=== PATIENT | male | born 1930 | race Caucasian/White ===

== ENCOUNTER 2021-04-14 20:28 | Inpatient (IN) | payer MEDICARE ==
[~2021-04-14] VITALS: Ht 172.7 cm; Wt 81.6 kg
[2021-04-14] MEDS ORDERED: DEXAMETHASONE SOD PHOSPHATE 4 MG INJ IV ONE (20:45)
[2021-04-14] MEDS ORDERED: ALBUTEROL SULFATE 8 GM HFA.AER.AD IH PRN ×2 (20:45→23:00)
[2021-04-14] MEDS ORDERED: AZITHROMYCIN IV 500 MG in IV DEXTROSE 5% 250 ML IV ONE (20:45)
[2021-04-14] MEDS ORDERED: CEFTRIAXONE 1 G in IV DEXTROSE 5% 50 ML IV ONE (20:45)
[2021-04-14 21:11] LABS: HEMATOCRIT 36.9 % (36.7-47.1); MEAN CORPUSCULAR VOLUME 96.4 fL (73.0-96.2); PLATELET COUNT (AUTO) 246 K/uL (152-348)
[2021-04-14 21:18] LABS: CARBON DIOXIDE 27 mmol/L (21-32); CHLORIDE 96 mmol/L (98-107); CREATININE 1.5 mg/dL (0.6-1.3); GLUCOSE 158 mg/dL (74-106); POTASSIUM 3.3 mmol/L (3.5-5.1); UREA NITROGEN, BLOOD 21 mg/dL (7-18)
[2021-04-14] MEDS ORDERED: AZITHROMYCIN 500MG/ D5W 250ML IVPB **ER PYXIS ONLY IV ONE (21:25)
[2021-04-14] MEDS ORDERED: DEXAMETHASONE SOD PHOSPHATE 10 MG INJ ONE (21:25)
[2021-04-14] MEDS ORDERED: CEFTRIAXONE /D5W 50ML IVPB **ER PYXIS IV ONE (21:25)
[2021-04-14 21:30] LABS: ALANINE AMINOTRANSFERASE 18 U/L (16-63); ALKALINE PHOSPHATASE 56 U/L (50-136); ASPARTATE AMINOTRANSFERASE 20 U/L (15-37); BILIRUBIN,DIRECT 0.2 mg/dL (0.0-0.2); BILIRUBIN,TOTAL 0.4 mg/dL (0.2-1.0); TOTAL PROTEIN, SERUM 6.9 g/dL (6.4-8.2)
[2021-04-14] MEDS ORDERED: IV NORMAL SALINE 500 ML BAG IV ONE (21:45)
[2021-04-14] MEDS ORDERED: RIVA15TA PO (22:31)
[2021-04-14] MEDS ORDERED: CLOP75TA15 PO (22:31)
[2021-04-14] MEDS ORDERED: ALLO100T PO (22:31)
[2021-04-14] MEDS ORDERED: AMLO10TA59 PO (22:31)
[2021-04-14] MEDS ORDERED: ATOR40TA PO (22:31)
[2021-04-14] MEDS ORDERED: TAMS-3 PO ×2 (22:31→23:09)
[2021-04-14] MEDS ORDERED: Z GUARD REMEDY PASTE 57 GM TUBE TOP PRN (23:00)
[2021-04-14] MEDS ORDERED: MAGNESIUM HYDROXIDE 30 ML LIQUID UDC PO PRN (23:00)
[2021-04-14] MEDS ORDERED: ONDANSETRON 4 MG/2 ML VIAL IV PRN (23:00)
[2021-04-14] MEDS ORDERED: ACETAMINOPHEN 325 MG TABLET PO PRN (23:00)
[2021-04-14] MEDS ORDERED: LOSA1TAB36 PO (23:09)
[2021-04-14] MEDS ORDERED: AMLO-212 PO (23:09)
[2021-04-14] MEDS ORDERED: GABA300C PO (23:09)
[2021-04-14] MEDS ORDERED: MODA200T44 PO (23:09)
[2021-04-14] MEDS ORDERED: CLOM50TA18 PO (23:09)
[2021-04-14] MEDS ORDERED: TRAM50TA2 PO (23:09)
[2021-04-14] MEDS ORDERED: ALLO300T2 PO (23:09)
[2021-04-14] MEDS ORDERED: ESCI10TA PO (23:09)
[2021-04-14] MEDS ORDERED: ATOR20TA PO (23:09)
[2021-04-14] MEDS ORDERED: RIVA10TA PO (23:09)
[2021-04-14] MEDS ORDERED: TRAMADOL HCL 50 MG TABLET PO PRN (23:15)
[2021-04-14] MEDS ORDERED: Medication Not On Formulary EA (Losartan/Hydrochlorothiazide (Losartan-Hctz 50-12.5 Mg T PO SCH (23:15)
[2021-04-15 01:15] LABS: ABG BASE EXCESS -2.2 mmol/L; ABG HCO3 21.7 mmol/L; ABG PCO2 34.3 mmHg (35.0-45.0); ABG PH 7.419 (7.350-7.450); ABG PO2 68.9 mmHg (75.0-100.0); ABG SITE RIGHT RADIAL; ABG TOTAL HEMOGLOBIN 12.5 G/dL (13.5-18.0); COHb 0.6 % (0.5-1.5); MetHb 0.3 % (0.0-1.5); O2Hb 92.2 % (94.0-97.0); VENT MODE Nasal Cannula
[2021-04-15] MEDS ORDERED: POTASSIUM CHLORIDE 20 MEQ TAB.PRT.SR PO ONE (03:15)
[2021-04-15] MEDS ORDERED: POTASSIUM CHLORIDE 20 MEQ TAB.PRT.SR ONE (03:15)
[2021-04-15 04:00] VITALS: BP 167/89
[2021-04-15] MEDS: PANTOPRAZOLE SODIUM 40 MG TABLET.DR PO SCH (06:37)
[2021-04-15 07:04] LABS: HEMATOCRIT 32.9 % (36.7-47.1); MEAN CORPUSCULAR HEMOGLOBIN 32.7 uug (23.8-33.4); MEAN CORPUSCULAR VOLUME 96.2 fL (73.0-96.2); PLATELET COUNT (AUTO) 228 K/uL (152-348)
[2021-04-15 07:45] LABS: CREATININE 1.3 mg/dL (0.6-1.3); POTASSIUM 3.6 mmol/L (3.5-5.1)
[2021-04-15] MEDS ORDERED: TAMSULOSIN HCL 0.4 MG CAP.SR.24H PO SCH (09:00)
[2021-04-15] MEDS: HEPARIN SODIUM,PORCINE 5,000 UNITS/ML VIAL SQ SCH ×2 (10:04→21:31)
[2021-04-15] MEDS: AMLODIPINE 5 MG TABLET PO SCH (10:12)
[2021-04-15] MEDS: HYDROCHLOROTHIAZIDE 12.5 MG CAPSULE PO SCH (10:12)
[2021-04-15] MEDS: LOSARTAN POTASSIUM 50 MG TABLET PO SCH (10:13)
[2021-04-15] MEDS: ATORVASTATIN 20 MG TABLET PO SCH (10:13)
[2021-04-15] MEDS: ALLOPURINOL 300 MG TABLET PO SCH (10:14)
[2021-04-15] MEDS: GABAPENTIN 300 MG CAPSULE PO SCH ×3 (10:14→17:08)
[2021-04-15] MEDS: TRAMADOL HCL 50 MG TABLET PO SCH ×2 (10:14→17:09)
[2021-04-15] MEDS: IV NS 1000 ML 1,000 ML IV PRN ×2 (10:15→21:29)
[2021-04-15 12:00] VITALS: BP 109/57
[2021-04-15 16:00] VITALS: BP 120/55
[2021-04-15 20:00] VITALS: BP 103/58
[2021-04-15] MEDS ORDERED: REMDESIVIR (CHARGED) 200 MG in IV NORMAL SALINE 210 ML IV ONE (21:00)
[2021-04-15] MEDS: GUAIFENESIN/DEXTROMETHORPHAN 5 ML UDC PO PRN (21:28)
[2021-04-15] MEDS: DEXAMETHASONE SOD PHOSPHATE 4 MG INJ IV SCH (21:28)
[2021-04-15] MEDS: ESCITALOPRAM OXALATE 10 MG TABLET PO SCH (21:30)
[2021-04-15 21:33] LABS: *BILIRUBIN,URIN NEGATIVE (NEGATIVE); *CLARITY,URINE CLEAR (CLEAR); *COLOR,URINE YELLOW (YELLOW); *KETONES,URINE NEGATIVE (NEGATIVE); *UROBILINOGEN,URINE 0.2 E.U./dl (NORMAL); LEUKOCYTE ESTERASE ,URINE NEGATIVE (NEGATIVE); NITRITE, URINE NEGATIVE (NEGATIVE); PH,URINE 5.5 (5.0-8.0); UGLUCOSE NEGATIVE (NEGATIVE)
[2021-04-15 21:39] LABS: *BLOOD, URINE TRACE (NEGATIVE)
[2021-04-15 21:49] LABS: BACTERIA,URINE NONE SEEN /HPF (NONE SEEN); MUCUS,URINE FEW /LPF (0-FEW); RBC,URINE NONE SEEN /HPF (0-3); WBC,URINE 0-3 /HPF (0-3)
[2021-04-15 21:50] LABS: SQUAMOUS EPITHELIAL CELL,UR NONE SEEN /HPF (NONE SEEN)
[2021-04-16] VITALS: BP 110/72
[2021-04-16] MEDS: GUAIFENESIN/DEXTROMETHORPHAN 5 ML UDC PO PRN (02:43)
[2021-04-16 04:00] VITALS: BP 145/80
[2021-04-16] MEDS: PANTOPRAZOLE SODIUM 40 MG TABLET.DR PO SCH (06:06)
[2021-04-16 07:38] LABS: HEMATOCRIT 33.6 % (36.7-47.1); MEAN CORPUSCULAR HEMOGLOBIN 32.5 uug (23.8-33.4); MEAN CORPUSCULAR VOLUME 97.1 fL (73.0-96.2); PLATELET COUNT (AUTO) 206 K/uL (152-348)
[2021-04-16 08:18] LABS: CREATININE 1.1 mg/dL (0.6-1.3); POTASSIUM 3.8 mmol/L (3.5-5.1)
[2021-04-16] MEDS: LOSARTAN POTASSIUM 50 MG TABLET PO SCH (09:19)
[2021-04-16] MEDS: ATORVASTATIN 20 MG TABLET PO SCH (09:19)
[2021-04-16] MEDS: ALLOPURINOL 300 MG TABLET PO SCH (09:19)
[2021-04-16] MEDS: HYDROCHLOROTHIAZIDE 12.5 MG CAPSULE PO SCH (09:20)
[2021-04-16] MEDS: TRAMADOL HCL 50 MG TABLET PO SCH ×2 (09:20→16:44)
[2021-04-16] MEDS: GABAPENTIN 300 MG CAPSULE PO SCH ×3 (09:20→16:44)
[2021-04-16] MEDS: AMLODIPINE 5 MG TABLET PO SCH (09:20)
[2021-04-16] MEDS: HEPARIN SODIUM,PORCINE 5,000 UNITS/ML VIAL SQ SCH ×2 (09:22→20:26)
[2021-04-16 09:37] LABS: BILIRUBIN,DIRECT 0.1 mg/dL (0.0-0.2); BILIRUBIN,TOTAL 0.2 mg/dL (0.2-1.0); TOTAL PROTEIN, SERUM 5.8 g/dL (6.4-8.2)
[2021-04-16 12:00] VITALS: BP 138/71
[2021-04-16] MEDS: IV NS 1000 ML 1,000 ML IV PRN (14:42)
[2021-04-16 16:00] VITALS: BP 133/69
[2021-04-16 20:00] VITALS: BP 90/66
[2021-04-16] MEDS: ESCITALOPRAM OXALATE 10 MG TABLET PO SCH (20:24)
[2021-04-16] MEDS: TAMSULOSIN HCL 0.4 MG CAP.SR.24H PO SCH (20:25)
[2021-04-16] MEDS: DEXAMETHASONE SOD PHOSPHATE 4 MG INJ IV SCH (20:26)
[2021-04-16] MEDS: REMDESIVIR (CHARGED) 100 MG in IV NORMAL SALINE 100 ML IV SCH (20:57)
[2021-04-17 00:20] VITALS: BP 139/79
[2021-04-17 04:00] VITALS: BP 146/77
[2021-04-17] MEDS: IV NS 1000 ML 1,000 ML IV PRN ×2 (05:04→17:42)
[2021-04-17] MEDS: PANTOPRAZOLE SODIUM 40 MG TABLET.DR PO SCH (06:08)
[2021-04-17 06:31] LABS: HEMATOCRIT 35.2 % (36.7-47.1); MEAN CORPUSCULAR HEMOGLOBIN 32.1 uug (23.8-33.4); MEAN CORPUSCULAR VOLUME 97.2 fL (73.0-96.2); PLATELET COUNT (AUTO) 232 K/uL (152-348)
[2021-04-17 07:07] LABS: BILIRUBIN,DIRECT 0.1 mg/dL (0.0-0.2); BILIRUBIN,TOTAL 0.1 mg/dL (0.2-1.0); POTASSIUM 3.6 mmol/L (3.5-5.1); TOTAL PROTEIN, SERUM 5.9 g/dL (6.4-8.2)
[2021-04-17] MEDS: HEPARIN SODIUM,PORCINE 5,000 UNITS/ML VIAL SQ SCH ×2 (09:25→20:26)
[2021-04-17] MEDS: LOSARTAN POTASSIUM 50 MG TABLET PO SCH (09:26)
[2021-04-17] MEDS: HYDROCHLOROTHIAZIDE 12.5 MG CAPSULE PO SCH (09:26)
[2021-04-17] MEDS: ALLOPURINOL 300 MG TABLET PO SCH (09:26)
[2021-04-17] MEDS: AMLODIPINE 5 MG TABLET PO SCH (09:27)
[2021-04-17] MEDS: GABAPENTIN 300 MG CAPSULE PO SCH ×3 (09:27→16:54)
[2021-04-17] MEDS: ATORVASTATIN 20 MG TABLET PO SCH (09:27)
[2021-04-17] MEDS: TRAMADOL HCL 50 MG TABLET PO SCH ×2 (09:27→16:54)
[2021-04-17 20:00] VITALS: BP 121/60
[2021-04-17] MEDS: REMDESIVIR (CHARGED) 100 MG in IV NORMAL SALINE 100 ML IV SCH (20:17)
[2021-04-17] MEDS: ESCITALOPRAM OXALATE 10 MG TABLET PO SCH (20:26)
[2021-04-17] MEDS: DEXAMETHASONE SOD PHOSPHATE 4 MG INJ IV SCH (20:26)
[2021-04-17] MEDS: TAMSULOSIN HCL 0.4 MG CAP.SR.24H PO SCH (20:26)
[2021-04-17 22:00] VITALS: BP 132/64
[2021-04-18] VITALS: BP 154/81
[2021-04-18 04:34] VITALS: BP 156/78
[2021-04-18] MEDS: IV NS 1000 ML 1,000 ML IV PRN ×2 (06:13→22:22)
[2021-04-18] MEDS: PANTOPRAZOLE SODIUM 40 MG TABLET.DR PO SCH (06:13)
[2021-04-18 08:13] LABS: HEMATOCRIT 36.6 % (36.7-47.1); MEAN CORPUSCULAR HEMOGLOBIN 32.1 uug (23.8-33.4); MEAN CORPUSCULAR VOLUME 97.6 fL (73.0-96.2); PLATELET COUNT (AUTO) 280 K/uL (152-348)
[2021-04-18 08:31] LABS: BILIRUBIN,DIRECT 0.1 mg/dL (0.0-0.2); BILIRUBIN,TOTAL 0.2 mg/dL (0.2-1.0); CREATININE 1.2 mg/dL (0.6-1.3); POTASSIUM 4.2 mmol/L (3.5-5.1); TOTAL PROTEIN, SERUM 5.9 g/dL (6.4-8.2)
[2021-04-18] MEDS: ALLOPURINOL 300 MG TABLET PO SCH (08:40)
[2021-04-18] MEDS: GABAPENTIN 300 MG CAPSULE PO SCH ×3 (08:40→17:47)
[2021-04-18] MEDS: ATORVASTATIN 20 MG TABLET PO SCH (08:41)
[2021-04-18] MEDS: AMLODIPINE 5 MG TABLET PO SCH (08:45)
[2021-04-18] MEDS: HYDROCHLOROTHIAZIDE 12.5 MG CAPSULE PO SCH (08:45)
[2021-04-18] MEDS: LOSARTAN POTASSIUM 50 MG TABLET PO SCH (08:45)
[2021-04-18] MEDS: TRAMADOL HCL 50 MG TABLET PO SCH ×2 (08:46→17:47)
[2021-04-18] MEDS: HEPARIN SODIUM,PORCINE 5,000 UNITS/ML VIAL SQ SCH ×2 (08:50→20:05)
[2021-04-18 11:00] VITALS: BP 139/79
[2021-04-18 16:00] VITALS: BP 128/61
[2021-04-18 20:00] VITALS: BP 140/69
[2021-04-18] MEDS: REMDESIVIR (CHARGED) 100 MG in IV NORMAL SALINE 100 ML IV SCH (20:05)
[2021-04-18] MEDS: TAMSULOSIN HCL 0.4 MG CAP.SR.24H PO SCH (20:06)
[2021-04-18] MEDS: DEXAMETHASONE SOD PHOSPHATE 4 MG INJ IV SCH (20:06)
[2021-04-18] MEDS: ESCITALOPRAM OXALATE 10 MG TABLET PO SCH (20:06)
[2021-04-18] MEDS: GUAIFENESIN/DEXTROMETHORPHAN 5 ML UDC PO PRN (20:24)
[2021-04-19] VITALS: BP 145/76
[2021-04-19] MEDS: PANTOPRAZOLE SODIUM 40 MG TABLET.DR PO SCH (06:22)
[2021-04-19 06:30] VITALS: BP 164/80
[2021-04-19] MEDS: LOSARTAN POTASSIUM 50 MG TABLET PO SCH ×2 (06:54→09:48)
[2021-04-19 07:46] LABS: HEMATOCRIT 38.1 % (36.7-47.1); MEAN CORPUSCULAR HEMOGLOBIN 32.6 uug (23.8-33.4); MEAN CORPUSCULAR VOLUME 97.8 fL (73.0-96.2); PLATELET COUNT (AUTO) 259 K/uL (152-348)
[2021-04-19 08:58] LABS: BILIRUBIN,DIRECT 0.1 mg/dL (0.0-0.2); BILIRUBIN,TOTAL 0.2 mg/dL (0.2-1.0); MAGNESIUM 2.2 mg/dL (1.8-2.4); PHOSPHOROUS 2.7 mg/dL (2.5-4.9); POTASSIUM 4.2 mmol/L (3.5-5.1); TOTAL PROTEIN, SERUM 5.9 g/dL (6.4-8.2)
[2021-04-19] MEDS: TRAMADOL HCL 50 MG TABLET PO SCH ×2 (09:46→17:31)
[2021-04-19] MEDS: ALLOPURINOL 300 MG TABLET PO SCH (09:49)
[2021-04-19] MEDS: AMLODIPINE 5 MG TABLET PO SCH (09:49)
[2021-04-19] MEDS: GABAPENTIN 300 MG CAPSULE PO SCH ×3 (09:49→17:30)
[2021-04-19] MEDS: ATORVASTATIN 20 MG TABLET PO SCH (09:49)
[2021-04-19] MEDS: HYDROCHLOROTHIAZIDE 12.5 MG CAPSULE PO SCH (09:49)
[2021-04-19] MEDS: HEPARIN SODIUM,PORCINE 5,000 UNITS/ML VIAL SQ SCH (10:00)
[2021-04-19 11:00] VITALS: BP 125/65
[2021-04-19] MEDS ORDERED: DEXA6TAB6 PO (14:02)
[2021-04-19] MEDS ORDERED: PANT40TA2 PO (14:02)
[2021-04-19 17:12] VITALS: BP 119/67
== END 2021-04-19 20:53 | disposition home health service (06) | DRG 177 ==
LOC: ER 20:32 → TELE3 04-15 02:58
PROVIDERS: ADMIT Internal Medicine; ATTEND Nurse Practitioner Acute Care
PROC: XW033E5 Introduction of Remdesivir Anti-infective into Peripheral Vein, Percutaneous Approach, New Technology Group 5 (ICD-10-PCS; principal; 2021-04-15)
DX: U07.1 COVID-19 (principal); J12.82 Pneumonia due to coronavirus disease 2019; J96.01 Acute respiratory failure with hypoxia; N17.0 Acute kidney failure with tubular necrosis; E87.1 Hypo-osmolality and hyponatremia; D68.59 Other primary thrombophilia; J98.11 Atelectasis; D64.9 Anemia, unspecified; E78.5 Hyperlipidemia, unspecified; E83.51 Hypocalcemia; E86.1 Hypovolemia; E87.6 Hypokalemia; F03.90 Unspecified dementia, unspecified severity, without behavioral disturbance, psychotic disturbance, mood disturbance, and anxiety; F32.A Depression, unspecified; G62.9 Polyneuropathy, unspecified; I11.9 Hypertensive heart disease without heart failure; I48.91 Unspecified atrial fibrillation; N40.0 Benign prostatic hyperplasia without lower urinary tract symptoms; Z86.73 Personal history of transient ischemic attack (TIA), and cerebral infarction without residual deficits; Z87.09 Personal history of other diseases of the respiratory system; Z90.79 Acquired absence of other genital organ(s); R73.9 Hyperglycemia, unspecified; I25.10 Atherosclerotic heart disease of native coronary artery without angina pectoris; G31.84 Mild cognitive impairment of uncertain or unknown etiology; M19.90 Unspecified osteoarthritis, unspecified site
CPT/HCPCS: 36415; 36600; 70030-TC; 71045; 83605; 83615; 83735; 84100; 85025; 85610; 85730; 86140; 87040; 87086; 87400; 93005; 97161; A4663; G0378; J0456; J0696; J1100; J1644; J3490; J3535; J7030; J7040; J7050